=== PATIENT | male | born 1980 | race Caucasian/White ===

== ENCOUNTER 2019-09-29 23:03 | Emergency (ER) | payer BC ==
--- NOTE | 2019-09-29 23:24 | ED ---
Shortness of Breath - HPI Summary HPI Summary: 39-year-old male presents with shortness breath today. He states this feels like his asthma is acting up. States that he went to a house where there are cats and dogs which he is allergic to. He states he tries albuterol without relief. Denies any chest pain. No cough. no recent illness. No fevers. He admits to sinus congestion. Denies any bowel pain. No nausea vomiting. no pain or swelling in his calf muscles. did not fly here. No family history of blood clots. - History of Current Complaint Chief Complaint: EDShortnessOfBreath Time Seen by Provider: 09/29/19 23:14 - Allergy/Home Medications Allergies/Adverse Reactions: Allergies Allergy/AdvReac Type Severity Reaction Status Date / Time No Known Allergies Allergy Verified 09/29/19 23:11 Home Medications: Home Medications Albuterol 2.5MG/3ML (0.083%)* 09/29/19 [History] Albuterol HFA INHALER* 09/29/19 [History] Cetirizine HCl [Zyrtec] 10 mg PO DAILY 09/29/19 [History Confirmed 09/29/19] Fluticasone Propionate [Flonase Allergy Relief] 50 mcg NA DAILY 09/29/19 [ History Confirmed 09/29/19] Simvastatin 40 mg PO DAILY 09/29/19 [History Confirmed 09/29/19] PMH/Surg Hx/FS Hx/Imm Hx Endocrine/Hematology History: Denies: Hx Anticoagulant Therapy Respiratory History: Reports: Hx Asthma Infectious Disease History: No Infectious Disease History: Denies: Traveled Outside the [place] in Last 30 Days - Family History Known Family History: Positive: Non-Contributory - Social History Alcohol Use: unknown Substance Use Type: Reports: None Smoking Status (MU): Never Smoked Tobacco Review of Systems Negative: Fever Negative: Chest Pain Positive: Shortness Of Breath. Negative: Cough Negative: Abdominal Pain All Other Systems Reviewed And Are Negative: Yes Physical Exam Triage Information Reviewed: Yes Vital Signs On Initial Exam: Initial Vitals Temp Pulse Resp BP Pulse Ox 98.4 F 122 20 131/102 95 09/29/19 23:09 09/29/19 23:09 09/29/19 23:09 09/29/19 23:09 09/29/19 23:09 Vital Signs Reviewed: Yes Appearance: Positive: Well-Appearing Skin: Positive: Warm, Dry Head/Face: Positive: Normal Head/Face Inspection Eyes: Positive: Normal, EOMI, BRANDON, Conjunctiva Clear ENT: Positive: Pharynx normal, TMs normal Respiratory/Lung Sounds: Positive: Clear to Auscultation, Breath Sounds Present Cardiovascular: Positive: Normal, RRR Abdomen Description: Positive: Nontender, Soft Bowel Sounds: Positive: Present Musculoskeletal: Positive: Normal Neurological: Positive: Normal Psychiatric: Positive: Normal Procedures - Sedation Patient Received Moderate/Deep Sedation with Procedure: No Diagnostics - Vital Signs Vital Signs Temp Pulse Resp BP Pulse Ox 09/29/19 23:09 98.4 F 122 20 131/102 95 - Laboratory Result Diagrams: 09/30/19 00:12 09/30/19 00:12 Lab Statement: Any lab studies that have been ordered have been reviewed, and results considered in the medical decision making process. - Radiology chest Radiology Interpretation Completed By: ED Physician Summary of Radiographic Findings: no pneumonia - EKG No standard instances Cardiac Rate: Tachycardia EKG Rhythm: Sinus Tachycardia Summary of EKG Findings: sinus tachycardia Re-Evaluation - Re-Evaluation First Eval Re-Evaluation Time: 00:32 Change: Improved Comment: feeling better, lungs CTA Course/Dx - Course Course Of Treatment: 39-year-old male presents with shortness breath today. He states this feels like his asthma is acting up. States that he went to a house where there are cats and dogs which he is allergic to. He states he tries albuterol without relief. Denies any chest pain. No cough. no recent illness. No fevers. He admits to sinus congestion. Denies any bowel pain. No nausea vomiting. no pain or swelling in his calf muscles. did not fly here. No family history of blood clots. On exam decreased breath sounds heard. We'll give breathing treatment and steroids. feeling better with such. wbc normal. troponin zero. ekg sinus rhythm. d-dimer neg. will prescribe steriod for next couple days. patient understand and agrees with plan. - Diagnoses Differential Diagnosis/HQI/PQRI: Positive: Asthma, Pneumonia, Pulmonary Embolism Provider Diagnoses: Asthma Discharge ED - Sign-Out/Discharge Documenting (check all that apply): Patient Departure - Discharge Plan Condition: Good Disposition: HOME Prescriptions: predniSONE 50 mg TAB [Deltasone 50 mg TAB] 50 mg PO DAILY #4 tab Patient Education Materials: Asthma (ED) Referrals: No Primary Care Phys,NOPCP [Primary Care Provider] - Additional Instructions: Use inhaler up to two puffs every 4 hours for cough and wheezing Take steroid once a day for 4 more days starting tomorrow Take Tylenol or ibuprofen for pain every 6 hours follow up with primary within 5 days Return to ED if develop any new or worsening symptoms - Billing Disposition and Condition Condition: GOOD Disposition: Home
[2019-09-29] MEDS: methylPREDNISolone 125 MG* 2 ML VIAL IV ONE (23:33)
[2019-09-29] MEDS: Albuterol/Ipratropium NEB.SOL* Albuterol 2.5 MG/Ipratropium 0.5 MG 3 ML INH ONE (23:36)
[2019-09-30 00:20] LABS: ABS Eosinophils 0.2 10^3/ul (0-0.6); ABS Monocytes 0.5 10^3/ul (0-0.8); ABS Neutrophils 3.4 10^3/ul (1.5-7.7); Eosinophil % 3.2 %; Hematocrit 41 % (42-52); Hemoglobin 14.3 g/dL (14.0-18.0); Mean Corpuscular HGB Conc 35 g/dL (31-36); Mean Corpuscular Hemoglobin 30 pg (27-31); Mean Corpuscular Volume 87 fL (80-94); Mean Platelet Volume 8.6 fL (7.4-10.4); Platelet Count 107 10^3/uL (150-450); Red Blood Count 4.71 10^6 /uL (4.18-5.48); Red Cell Distribution Width 13 % (10-15); White Blood Count 5.1 10^3/uL (3.5-10.8)
[2019-09-30 00:38] LABS: ALT 27 U/L (7-52); AST 20 U/L (13-39); Albumin 4.1 g/dL (3.2-5.2); Albumin/Globulin Ratio 2.1 (1-3); Alkaline Phosphatase 52 U/L (34-104); Anion Gap 6 mmol/L (2-11); BUN/Creatinine Ratio 22.1 (8-20); Blood Urea Nitrogen 23 mg/dL (6-24); C Reactive Protein < 1.00 mg/L (<8.01); CO2 Carbon Dioxide 25 mmol/L (22-32); Calcium 8.5 mg/dL (8.6-10.3); Chloride 108 mmol/L (101-111); EGFR African American 96.2 (>60); EGFR Non-African American 79.5 (>60); Glucose 162 mg/dL (70-100); Potassium 3.3 mmol/L (3.5-5.0); Sodium 139 mmol/L (135-145); Total Protein 6.1 g/dL (6.4-8.9)
[2019-09-30] MEDS: A lbuterol Hfa (PREPAK) 1 MDI - ED TAKE HOME DISPENSING ONLY INHH ONE (01:25)
[2019-09-30 01:28] VITALS: BP 115/85
== END 2019-09-30 01:28 | disposition home or self-care (01) ==
LOC: ED 23:03
DX: J45.909 Unspecified asthma, uncomplicated (principal); Z79.899 Other long term (current) drug therapy
CPT/HCPCS: 36415; 71046; 80053; 84484; 85025; 85379; 86140; 93005; 96374; 99282; A9270-GY; J2930